=== PATIENT | male | born 1970 | race Caucasian/White ===

== ENCOUNTER → 2017-06-13 | Outpatient (CLI) | payer BC ==
--- NOTE | 2017-06-13 16:36 | MR ---
EXAMINATION TYPE: MR brain wo con DATE OF EXAM: 06/13/2017 COMPARISON: NONE HISTORY: Headaches, tunnel vision, hx of concussion 3-4 years ago TECHNIQUE: Multiplanar, multisequence images of the brain and brainstem is performed without contrast. FINDINGS: Diffusion weighted images demonstrate no evidence of a recent infarct or other diffusion ab normality. There is no extra-axial fluid collection. Numerous T2/flair punctate areas of hyperintens ity are seen within the subcortical white matter, preferentially of the frontal lobes with at least 1 0 foci seen on the right and 9 foci seen on the left.. The ventricular system and cisternal spaces a re normal in size and appearance. The brain volume is age appropriate. No abnormal hemosiderin depos its are seen on the start trauma protocol sequence. Midline structures demonstrate normal morphology. The craniocervical junction appears within normal limits. Post contrast images demonstrate no abnormal enhancement. The dural venous sinuses appear pa tent. Globes are intact. Extraocular muscles and orbits are symmetric. New complete opacification of the maxillary sinuses and ethmoid sinuses are seen extending into the right frontal sinus. Mastoid ai r cells and sphenoid air cells are well aerated.. IMPRESSION: 1. No evidence of acute intracranial hemorrhage, hemosiderin deposits of prior hemorrhage, or acute i nfarct. 2. Moderate burden nonspecific white matter change. These findings can be seen in migraines, microang iopathy, vasculitis, sequela of prior trauma or less likely demyelinating disease. 3. Extensive near pansinusitis. 4. Orbits, extraocular muscles, optic nerves, optic chiasm, pituitary, and occipital lobes appear unr emarkable.
== END | disposition home or self-care (01) ==
LOC: RADMRIMAIN 13:21
PROVIDERS: ATTEND Physician Assistant
DX: R90.82 White matter disease, unspecified (principal); G43.109 Migraine with aura, not intractable, without status migrainosus
CPT/HCPCS: 70551

== ENCOUNTER → 2019-12-29 | Outpatient (CLI) | payer OTHER ==
--- NOTE | 2019-12-29 16:47 | XR ---
EXAMINATION TYPE: XR knee complete LT DATE OF EXAM: 12/29/2019 CLINICAL HISTORY: Increasing medial knee pain for 2 to 3 months. TECHNIQUE: Three views of the left knee are obtained. COMPARISON: None. FINDINGS: There is no acute fracture/dislocation evident in left knee. Mild tricompartment joint spa ce loss greatest medial tibiofemoral compartment without significant spurring. The overlying soft tis alise appears unremarkable. IMPRESSION: As above.
== END | disposition home or self-care (01) ==
LOC: RADXRYALE 16:30
PROVIDERS: ATTEND Physician Assistant
DX: R93.6 Abnormal findings on diagnostic imaging of limbs (principal)

== ENCOUNTER 2020-08-14 09:52 | Emergency (ER) | payer OTHER ==
[2020-08-14 10:01] VITALS: RESP 18
[2020-08-14] MEDS ORDERED: SODIUM CHLORIDE 0.9% 1,000 ML IV STA (10:23)
--- NOTE | 2020-08-14 10:40 | ED ---
General Adult HPI - General Chief complaint: Neck Pain/Injury Stated complaint: head & neck pain Time Seen by Provider: 08/14/20 09:57 Source: patient Mode of arrival: ambulatory Limitations: no limitations - History of Present Illness Initial comments: 50-year-old male with a past smoking history who presents to the emergency room for a chief complaint of right-sided neck pain. Patient states this has been ongoing for 3 days. States it is a sharp pain on the anterior side of his neck that radiates up his face into his head. Patient denies pain worsening with movement but does state it feels like it is "stretching" when he looks over her shoulder to the left. States it is somewhat discomforting when he palpates the area. No difficulty swallowing. No drooling. No sore throat. No posterior neck pain. No fevers or chills.Patient has no other complaints at this time including shortness of breath, chest pain, abdominal pain, nausea or vomiting, or visual changes. - Related Data Home Medications Medication Instructions Recorded Confirmed Aspirin EC [Ecotrin] 650 mg PO QID PRN 08/14/20 08/14/20 Allergies Allergy/AdvReac Type Severity Reaction Status Date / Time No Known Allergies Allergy Verified 08/14/20 10:37 Review of Systems ROS Statement: Those systems with pertinent positive or pertinent negative responses have been documented in the HPI. ROS Other: All systems not noted in ROS Statement are negative. Past Medical History Past Medical History: No Reported History History of Any Multi-Drug Resistant Organisms: None Reported Past Surgical History: Hernia Repair, Orthopedic Surgery Additional Past Surgical History / Comment(s): lt shoulder Past Psychological History: No Psychological Hx Reported Smoking Status: Current every day smoker Past Alcohol Use History: Rare Past Drug Use History: None Reported General Exam Limitations: no limitations General appearance: alert Head exam: Present: atraumatic Eye exam: Present: normal appearance, PERRL, EOMI ENT exam: Present: normal exam, normal oropharynx, mucous membranes moist, TM's normal bilaterally Neck exam: Present: normal inspection, tenderness (Minimal tenderness noted to the right anterior neck), full ROM. Absent: meningismus, lymphadenopathy Respiratory exam: Present: normal lung sounds bilaterally. Absent: respiratory distress, wheezes Cardiovascular Exam: Present: regular rate, normal rhythm, normal heart sounds GI/Abdominal exam: Present: soft, normal bowel sounds. Absent: distended, tenderness Extremities exam: Present: normal capillary refill (Radial pulses 2+ and equal in upper extremities bilaterally) Neurological exam: Present: alert, oriented X3, other (GCS 15) Expanded Patient oriented to: Present: person, place, time Speech: Present: fluid speech Cranial nerves: EOM's Intact: Normal, Tongue Deviation: Normal, Nystagmus: Normal, Facial Sensation: Normal Sensory exam: Upper Extremity Light Touch: Normal, Upper Extremity Pin Prick: Normal, Lower Extremity Light Touch: Normal, Lower Extremity Pin Prick: Normal Motor strength exam: RUE: 5, LUE: 5, RLE: 5, LLE: 5 Course Vital Signs 08/14/20 09:57 Temperature 98.8 F Pulse Rate 80 Respiratory 18 Rate Blood Pressure 121/95 O2 Sat by Pulse 98 Oximetry - Reevaluation(s) Reevaluation #1: 08/14/20 13:12 Delay in care: CT has not been read for quite some time. There was an issue with it being put into dictated and apparently no one read it and no one was reading it after was placed back into complete. They are going to call the radiologists to read it. Medical Decision Making - Medical Decision Making Vitals are stable. Patient is well-appearing. Does not want pain medication at first. No focal neurologic deficits. Patient has had headaches for weeks and pain in the neck for [address] angios head and neck show no flow-limiting sten osis in the bilateral carotids. Normal [place] of [place]. At this time patient will follow-up with his doctor. He will return here for any worsening symptoms. - Lab Data Result diagrams: 08/14/20 10:39 08/14/20 10:39 Lab Results 08/14/20 08/14/20 Range/Units 10:39 10:39 WBC 8.1 (3.8-10.6) k/uL RBC 5.27 (4.30-5.90) m/uL Hgb 16.7 (13.0-17.5) gm/dL Hct 49.8 (39.0-53.0) % MCV 94.5 (80.0-100.0) fL MCH 31.6 (25.0-35.0) pg MCHC 33.4 (31.0-37.0) g/dL RDW 13.5 (11.5-15.5) % Plt Count 185 (150-450) k/uL MPV 7.6 Neutrophils % 66 % Lymphocytes % 23 % Monocytes % 7 % Eosinophils % 2 % Basophils % 1 % Neutrophils # 5.4 (1.3-7.7) k/uL Lymphocytes # 1.8 (1.0-4.8) k/uL Monocytes # 0.5 (0-1.0) k/uL Eosinophils # 0.1 (0-0.7) k/uL Basophils # 0.1 (0-0.2) k/uL Sodium 135 L (137-145) mmol/L Potassium 4.4 (3.5-5.1) mmol/L Chloride 105 (98-107) mmol/L Carbon Dioxide 25 (22-30) mmol/L Anion Gap 5 mmol/L BUN 14 (9-20) mg/dL Creatinine 0.81 (0.66-1.25) mg/dL Est GFR (CKD-EPI)AfAm >90 (>60 ml/min/1.73 sqM) Est GFR (CKD-EPI)NonAf >90 (>60 ml/min/1.73 sqM) Glucose 107 H (74-99) mg/dL Calcium 9.0 (8.4-10.2) mg/dL Total Bilirubin 0.9 (0.2-1.3) mg/dL AST 28 (17-59) U/L ALT 26 (4-49) U/L Alkaline Phosphatase 50 (38-126) U/L Total Protein 7.0 (6.3-8.2) g/dL Albumin 4.4 (3.5-5.0) g/dL Disposition Clinical Impression: Headache, Neck pain Disposition: HOME SELF-CARE Condition: Good Instructions (If sedation given, give patient instructions): Neck Pain (ED) Additional Instructions: Please follow-up with your doctor in one to 2 days. Please return to the emergency room for any worsening symptoms. Is patient prescribed a controlled substance at d/c from ED?: No Referrals: Sancho Kerr DO [Primary Care Provider] - 1-2 days Time of Disposition: 13:42
[2020-08-14 10:49] LABS: Basophils # (A) 0.1 k/uL (0-0.2); Basophils % (A) 1 %; Eosinophils # (A) 0.1 k/uL (0-0.7); Eosinophils % (A) 2 %; HCT 49.8 % (39.0-53.0); HGB 16.7 gm/dL (13.0-17.5); Lymphocytes # (A) 1.8 k/uL (1.0-4.8); Lymphocytes % (A) 23 %; MCH 31.6 pg (25.0-35.0); MCHC 33.4 g/dL (31.0-37.0); MCV 94.5 fL (80.0-100.0); Mean Platelet Volume 7.6; Monocytes # (A) 0.5 k/uL (0-1.0); Monocytes % (A) 7 %; Neutrophils # (A) 5.4 k/uL (1.3-7.7); Neutrophils % (A) 66 %; Platelet Count 185 k/uL (150-450); RBC 5.27 m/uL (4.30-5.90); RDW 13.5 % (11.5-15.5); WBC 8.1 k/uL (3.8-10.6)
[2020-08-14 10:58] LABS: ALT 26 U/L (4-49); AST 28 U/L (17-59); African American GFR (CKD) >90 (>60 ml/min/1.73 sqM); Albumin 4.4 g/dL (3.5-5.0); Alkaline Phosphatase 50 U/L (38-126); Anion Gap 5 mmol/L; Blood Urea Nitrogen 14 mg/dL (9-20); Carbon Dioxide 25 mmol/L (22-30); Chloride 105 mmol/L (98-107); Glucose 107 mg/dL (74-99); Non-African American GFR(CKD) >90 (>60 ml/min/1.73 sqM); Potassium 4.4 mmol/L (3.5-5.1); Sodium 135 mmol/L (137-145); Total Bilirubin 0.9 mg/dL (0.2-1.3)
[2020-08-14] MEDS ORDERED: HYDROcodone/APAP 5-325MG 1 EACH TAB PO STA (13:11)
--- NOTE | 2020-08-14 13:31 | CT ---
EXAMINATION TYPE: CT angio head neck DATE OF EXAM: 08/14/2020 HISTORY: right side ant neck pain, HAs COMPARISON: None CT DLP: 1796.7 mGycm. Automated Exposure Control for Dose Reduction was Utilized. TECHNIQUE: CTA scan of the neck is performed without and with IV Contrast, patient injected with 65 mL of Isovue 370, axial images are obtained, coronal and sagittal reformatted images are reviewed. Th ree-D reconstructed images are created on an independent workstation and reviewed. Source images are reviewed. FINDINGS: Carotid/Vascular Structures: There is a three-vessel arch. Vertebral arteries are codominant. Carotid bifurcations appear normal without flow-limiting stenosis. Cervical of Russell: Vertebral basilar system appears normal. Posterior cerebral vasculature is unrema rkable. Internal carotid arteries bifurcate normally into A1 and M1 segments. A2 segments are normal. The anterior communicating artery is patent. Posterior communicating arteries are absent. IMPRESSION: 1. No flow-limiting stenosis bilateral carotid bifurcations. 2. Normal [place] of [place]
[2020-08-14] MEDS ORDERED: ACET/COD 300 MG/30 MG STARTER PACK 6 TAB BTL PO STA (13:43)
[2020-08-14] MEDS ORDERED: KETOROLAC 15 MG/ML 1 ML VIAL IVP STA (13:46)
[2020-08-14 14:10] VITALS: BP 133/80; PULSE 77; TEMP 98
== END 2020-08-14 14:10 | disposition home or self-care (01) ==
LOC: EC 09:52
DX: M54.2 Cervicalgia (principal); R51.9 Headache, unspecified; F17.200 Nicotine dependence, unspecified, uncomplicated
CPT/HCPCS: 36415; 80053; 85025; 70496; 70498; 99284; 96374; 96361 ×3; J1885; Q9967

== ENCOUNTER → 2020-09-27 | Outpatient (CLI) | payer OTHER ==
--- NOTE | 2020-09-27 17:30 | XR ---
EXAMINATION TYPE: XR cervical spine comp DATE OF EXAM: 09/27/2020 COMPARISON: None HISTORY: 50-year-old male [id number], cervicalgia TECHNIQUE: 5 views FINDINGS: Normal odontoid view. Degenerative change of the C1 dens articulation. No prevertebral soft tissue sw elling. Grade 1 retrolisthesis C3-C4 with moderate degenerative disc disease at this level. Additiona l moderate degenerative disc disease C6-C7. The cervicothoracic junction is of scattered by the patie nt's shoulders and not assessed. Possible severe bony neural foraminal narrowing on the right at C6-C7. Mild bony neuroforaminal narro wing on the left at C3-C4 and at least moderate C6-C7. IMPRESSION: 1. Note that the cervicothoracic junction is obscured by the patient's shoulders and not assessed. Th ere is a grade 1 retrolisthesis at C3-C4. The remaining alignment is maintained. 2. Moderate spondylotic change C3-C4 and C6-C7. This results in severe right and moderate left neurof oraminal stenosis at C6-C7 and mild on the left at C3-C4. 3. Degenerative change at the C1 dens articulation.
== END | disposition home or self-care (01) ==
LOC: RADXRYALE 15:47
PROVIDERS: ATTEND Physician Assistant
DX: M48.02 Spinal stenosis, cervical region (principal); M43.12 Spondylolisthesis, cervical region; M47.812 Spondylosis without myelopathy or radiculopathy, cervical region
CPT/HCPCS: 72050

== ENCOUNTER → 2020-12-05 | Outpatient (CLI) | payer OTHER ==
--- NOTE | 2020-12-05 11:46 | US ---
EXAMINATION TYPE: US thyroid st tissue head/neck DATE OF EXAM: 12/05/2020 COMPARISON: NONE CLINICAL HISTORY: E04.1 Nontoxic single thyroid Nodule. Patient stated OA MRI showing left thyroid no dule. GLAND SIZE: Right Lobe: 4.7 x 1.8 x 1.8 cm Overall Parenchyma: homogenous Left Lobe: 4.4 x 1.8 x 2.7 cm Overall Parenchyma: homogeneous Isthmus Thickness: 0.2 cm NODULES RIGHT: # of nodules measured on right: 2 1. 0.3 X 0.3 x 0.2 cm, mid, mixed cystic and solid, hypoechoic nodule, which is wider than tall, wi th ill-defined margins, without echogenic foci. 2. 0.4 X 0.5 x 0.2 cm, upper pole , cystic or almost completely cystic, hypoechoic nodule, which is wider than tall, with smooth margins, without echogenic foci. LEFT: # of nodules measured on left: 2 1. 1.9 X 1.7 x 1.6 cm, mid, solid or almost completely solid, isoechoic nodule, which is wider than tall, with lobulated or irregular margins, echogenic foci. 2. 0.4 X 0.3 x 0.2 cm, mid pole, cystic or almost completely cystic, anechoic nodule, which is wid er than tall, with smooth margins, without echogenic foci. ISTHMUS: # of nodules measured in the isthmus: 0 Bilateral neck scanned: lymph node seen upper right neck = 0.9 x 0.7 x 0.4cm. IMPRESSION: Solid nodule left thyroid lobe requires biopsy. Additional subcentimeter nodules seen bilaterally. 2017 ACR TI-RADS LEVEL: *Highest TI-RADS level nodule reported
== END | disposition home or self-care (01) ==
LOC: RADUSWWP 09:02
PROVIDERS: ATTEND Family Medicine
DX: E04.2 Nontoxic multinodular goiter (principal)
CPT/HCPCS: 76536

== ENCOUNTER 2021-01-17 09:10 | Day surgery (SDC) | payer OTHER ==
[2021-01-17 10:23] VITALS: RESP 16; TEMP 98.2
[2021-01-17 10:24] VITALS: BP 119/75; PULSE 75
--- NOTE | 2021-01-17 12:04 | US ---
EXAMINATION TYPE: US FNA thyroid first lesion DATE OF EXAM: 01/17/2021 COMPARISON: NONE HISTORY: Thyroid nodule. Maximal barrier technique was utilized. After informed consent, skin overlying the left lobe thyroid nodule was localized with ultrasound and the overlying skin prepped and draped. Ultrasound was utili zed using sterile technique. Lidocaine was used for local anesthesia. Five passes with a 25-gauge ne edle were made into the nodule and aspirated specimen was submitted to cytology. Following the proce dure hemostasis achieved. No immediate complication. The patient discharged in stable condition. IMPRESSION: STATUS POST ULTRASOUND GUIDED FINE NEEDLE ASPIRATION OF THYROID NODULE, PATHOLOGY IS PEND ING. THIS PROCEDURE WAS PERFORMED BY THE UNDERSIGNED.
== END 2021-01-17 10:25 | disposition home or self-care (01) ==
LOC: RADPROMAIN 09:10
PROVIDERS: ATTEND Family Medicine
DX: E04.1 Nontoxic single thyroid nodule (principal)
CPT/HCPCS: 10005; 88173; 88305

== ENCOUNTER → 2023-12-31 | Outpatient (CLI) | payer OTHER ==
--- NOTE | 2023-12-31 16:30 | XR ---
EXAMINATION TYPE: XR shoulder complete RT DATE OF EXAM: 12/31/2023 COMPARISON: NONE CLINICAL INDICATION: Male, 53 years old with history of [id number] RT SHLD PAIN Technique: 3 views of the right shoulder were obtained FINDINGS: There is no fracture, dislocation, intraosseous, intra-articular soft tissue abnormality. IMPRESSION: No significant abnormality seen.
== END | disposition home or self-care (01) ==
LOC: RADXRYALE 14:55
PROVIDERS: ATTEND Physician Assistant
DX: M25.511 Pain in right shoulder (principal)